=== PATIENT | female | born 1945 | race Caucasian/White ===

== ENCOUNTER 2021-02-09 15:33 | Emergency (ER) | payer MEDICARE, BC ==
[2021-02-09 15:40] VITALS: BP 169/89; PULSE 101; RESP 22; TEMP 98
[2021-02-09] MEDS ORDERED: IBUPROFEN 600 MG TAB PO STA (16:15)
--- NOTE | 2021-02-09 16:23 | ED ---
ENT HPI - General Chief complaint: ENT Stated complaint: Jaw Pain Time Seen by Provider: 02/09/21 16:00 Source: patient, family, RN notes reviewed Mode of arrival: ambulatory Limitations: no limitations - History of Present Illness Initial comments: 75-year-old white female, alert and oriented 4, and anxious. presents to the emergency room with her after developing trismus after eating lunch today. Patient states that she felt her jaw was tight and she was unable to open her mouth. She felt that her jaw was misaligned. Patient denies any injury, this has not happened to her in the past. Patient states there was 4 out of 10 pain at the time but it has resolved. Patient has a history of hypertension, GERD. Patient takes omeprazole hydrochlorothiazide daily. MD complaint: other (jaw tightening) -: hour(s) (1) Location: other (lower jaw) Severity scale (1-10): 0 Consistency: now resolved Improves with: none Worsens with: movement - Related Data Allergies Allergy/AdvReac Type Severity Reaction Status Date / Time azithromycin Allergy Rash/Hives Verified 02/09/21 15:40 [From Zithromax Z-Sigifredo] oxaprozin [From Daypro] Allergy Rash/Hives Verified 02/09/21 15:40 Review of Systems ROS Statement: Those systems with pertinent positive or pertinent negative responses have been documented in the HPI. ROS Other: All systems not noted in ROS Statement are negative. Past Medical History History of Any Multi-Drug Resistant Organisms: None Reported Past Surgical History: Adenoidectomy, Cholecystectomy, Joint Replacement, Tonsillectomy Additional Past Surgical History / Comment(s): sakshi hip Past Psychological History: No Psychological Hx Reported Smoking Status: Never smoker Past Alcohol Use History: None Reported Past Drug Use History: None Reported General Exam Limitations: no limitations General appearance: alert, in no apparent distress, anxious Head exam: Present: atraumatic, normocephalic, normal inspection Eye exam: Present: normal appearance, PERRL, EOMI. Absent: scleral icterus, conjunctival injection, periorbital swelling ENT exam: Present: normal exam, mucous membranes moist Expanded Mouth exam: Present: normal external inspection, trismus (resolved now) Throat exam: normal inspection. negative: tonsillar erythema, tonsillar exudate Neck exam: Present: normal inspection, full ROM. Absent: tenderness, meningismus, lymphadenopathy, thyromegaly Respiratory exam: Present: normal lung sounds bilaterally. Absent: respiratory distress, wheezes, rales, rhonchi, stridor, decreased breath sounds Cardiovascular Exam: Present: tachycardia GI/Abdominal exam: Present: soft, normal bowel sounds. Absent: distended, tenderness, guarding, rebound, rigid Extremities exam: Present: normal inspection, full ROM, normal capillary refill. Absent: tenderness, pedal edema, joint swelling, calf tenderness Back exam: Present: normal inspection, full ROM. Absent: tenderness Neurological exam: Present: alert, oriented X3, CN II-XII intact Psychiatric exam: Present: normal affect, normal mood, anxious Skin exam: Present: warm, dry, intact, normal color. Absent: rash Course Vital Signs 02/09/21 15:37 Temperature 98.0 F Pulse Rate 101 H Respiratory 22 Rate Blood Pressure 169/89 O2 Sat by Pulse 99 Oximetry Medical Decision Making - Medical Decision Making Patient had an episode of trismus that lasted less than one hour. Resolved at this time. Full range of motion. No lymphadenopathy, no fevers, swallows screen past. No neuro deficits. No headaches. Patient is point tender just to the left masseter muscle. Was given Motrin with relief of tightness. Case discussed with Dr. Lo will discharge patient home. Disposition Clinical Impression: Trismus Disposition: HOME SELF-CARE Condition: Good Instructions (If sedation given, give patient instructions): Temporomandibular Disorder (ED) Is patient prescribed a controlled substance at d/c from ED?: No Referrals: Nonstaff,Physician [Primary Care Provider] - 1-2 days Time of Disposition: 16:51
== END 2021-02-09 16:58 | disposition home or self-care (01) ==
LOC: EC 15:33
DX: R25.2 Cramp and spasm (principal); K21.9 Gastro-esophageal reflux disease without esophagitis; I10 Essential (primary) hypertension
CPT/HCPCS: 99282

== ENCOUNTER 2022-07-26 13:17 | Observation (INO) | payer MEDICARE, BC ==
[2022-07-26] MEDS ORDERED: SODIUM CHLORIDE 0.9% 1,000 ML IV STA (13:25)
--- NOTE | 2022-07-26 13:31 | ED ---
General Adult HPI - General Chief complaint: Syncope Stated complaint: Near-syncope Time Seen by Provider: 07/26/22 13:20 Source: patient, EMS, RN notes reviewed Mode of arrival: EMS Limitations: no limitations - History of Present Illness Initial comments: Patient is a pleasant 76-year-old female presenting to the emergency department for not feeling well. Patient was exercising prior to this. Patient reported that she did not feel well and sat down. Patient has had a few episodes of near-syncope. Patient does not recall these well but reportedly patient never completely lost consciousness. Patient states she does feel a little bit fatigued. EMS reports patient was sweaty earlier. EMS also questions the patient was in atrial fibrillation however unable To capture the rhythm on the monitor. - Related Data Allergies Allergy/AdvReac Type Severity Reaction Status Date / Time azithromycin Allergy Rash/Hives Verified 02/09/21 15:40 [From Zithromax Z-Sigifredo] oxaprozin [From Daypro] Allergy Rash/Hives Verified 02/09/21 15:40 Review of Systems ROS Statement: Those systems with pertinent positive or pertinent negative responses have been documented in the HPI. ROS Other: All systems not noted in ROS Statement are negative. Constitutional: Denies: fever Eyes: Denies: eye pain ENT: Denies: ear pain Respiratory: Denies: cough Cardiovascular: Denies: chest pain Endocrine: Reports: fatigue Gastrointestinal: Denies: abdominal pain Genitourinary: Denies: dysuria Musculoskeletal: Denies: back pain Skin: Denies: rash Neurological: Reports: as per HPI Past Medical History Past Medical History: Cancer Additional Past Medical History / Comment(s): Endometrial Cancer Grade 1 History of Any Multi-Drug Resistant Organisms: None Reported Past Surgical History: Adenoidectomy, Cholecystectomy, Joint Replacement, Tonsillectomy Additional Past Surgical History / Comment(s): sakshi hip Past Psychological History: No Psychological Hx Reported Smoking Status: Never smoker Past Alcohol Use History: None Reported Past Drug Use History: None Reported General Exam Limitations: no limitations General appearance: alert, in no apparent distress Head exam: Present: normocephalic Eye exam: Present: normal appearance, PERRL, EOMI ENT exam: Present: normal oropharynx Neck exam: Present: normal inspection Respiratory exam: Present: normal lung sounds bilaterally Cardiovascular Exam: Present: regular rate, normal rhythm GI/Abdominal exam: Present: soft. Absent: tenderness Extremities exam: Present: normal inspection, full ROM. Absent: tenderness, pedal edema, calf tenderness Neurological exam: Present: alert, oriented X3, CN II-XII intact. Absent: motor sensory deficit Expanded Cranial nerves: EOM's Intact: Normal Motor strength exam: RUE: 5, LUE: 5, RLE: 5, LLE: 5 Eye Response: (4) open spontaneously Motor Response: (6) obeys commands Verbal Response: (5) oriented Psychiatric exam: Present: normal affect, normal mood Skin exam: Present: normal color Course Vital Signs 07/26/22 07/26/22 13:17 13:27 Temperature 97.3 F L Pulse Rate 86 Respiratory 16 18 Rate Blood Pressure 150/86 O2 Sat by Pulse 100 Oximetry EKG Findings - EKG Comments: EKG Findings:: Sinus rhythm rate 78. VT 161. QRS 81. QT 363. QTC 396. Left axis. LVH. No acute ST change. Medical Decision Making - Medical Decision Making Patient reevaluated and resting comfortably in bed. Patient and family updated on results and plan. Dr. Suazo has been paged for admission covering for hospital call. CT chest will be ordered. - Lab Data Result diagrams: 07/26/22 13:48 07/26/22 13:48 Lab Results 07/26/22 07/26/22 07/26/22 Range/Units 13:48 13:48 13:48 WBC 7.4 (3.8-10.6) k/uL RBC 4.45 (3.80-5.40) m/uL Hgb 13.7 (11.4-16.0) gm/dL Hct 40.4 (34.0-46.0) % MCV 90.8 (80.0-100.0) fL MCH 30.7 (25.0-35.0) pg MCHC 33.8 (31.0-37.0) g/dL RDW 13.2 (11.5-15.5) % Plt Count 338 (150-450) k/uL MPV 7.8 Neutrophils % 64 % Lymphocytes % 24 % Monocytes % 5 % Eosinophils % 3 % Basophils % 1 % Neutrophils # 4.7 (1.3-7.7) k/uL Lymphocytes # 1.7 (1.0-4.8) k/uL Monocytes # 0.4 (0-1.0) k/uL Eosinophils # 0.2 (0-0.7) k/uL Basophils # 0.1 (0-0.2) k/uL PT 10.3 (9.0-12.0) sec INR 0.9 (<1.2) APTT 21.6 L (22.0-30.0) sec D-Dimer 0.96 H (<0.60) mg/L FEU Sodium 137 (137-145) mmol/L Potassium 4.4 (3.5-5.1) mmol/L Chloride 100 (98-107) mmol/L Carbon Dioxide 25 (22-30) mmol/L Anion Gap 12 mmol/L BUN 19 H (7-17) mg/dL Creatinine 0.67 (0.52-1.04) mg/dL Est GFR (CKD-EPI)AfAm >90 (>60 ml/min/1.73 sqM) Est GFR (CKD-EPI)NonAf 87 (>60 ml/min/1.73 sqM) Glucose 91 (74-99) mg/dL Calcium 9.5 (8.4-10.2) mg/dL Magnesium 1.9 (1.6-2.3) mg/dL Total Bilirubin 0.6 (0.2-1.3) mg/dL AST 24 (14-36) U/L ALT 18 (4-34) U/L Alkaline Phosphatase 70 (38-126) U/L Troponin I (0.000-0.034) ng/mL Total Protein 7.6 (6.3-8.2) g/dL Albumin 4.8 (3.5-5.0) g/dL Lipase 58 (23-300) U/L 07/26/22 Range/Units 13:48 WBC (3.8-10.6) k/uL RBC (3.80-5.40) m/uL Hgb (11.4-16.0) gm/dL Hct (34.0-46.0) % MCV (80.0-100.0) fL MCH (25.0-35.0) pg MCHC (31.0-37.0) g/dL RDW (11.5-15.5) % Plt Count (150-450) k/uL MPV Neutrophils % % Lymphocytes % % Monocytes % % Eosinophils % % Basophils % % Neutrophils # (1.3-7.7) k/uL Lymphocytes # (1.0-4.8) k/uL Monocytes # (0-1.0) k/uL Eosinophils # (0-0.7) k/uL Basophils # (0-0.2) k/uL PT (9.0-12.0) sec INR (<1.2) APTT (22.0-30.0) sec D-Dimer (<0.60) mg/L FEU Sodium (137-145) mmol/L Potassium (3.5-5.1) mmol/L Chloride (98-107) mmol/L Carbon Dioxide (22-30) mmol/L Anion Gap mmol/L BUN (7-17) mg/dL Creatinine (0.52-1.04) mg/dL Est GFR (CKD-EPI)AfAm (>60 ml/min/1.73 sqM) Est GFR (CKD-EPI)NonAf (>60 ml/min/1.73 sqM) Glucose (74-99) mg/dL Calcium (8.4-10.2) mg/dL Magnesium (1.6-2.3) mg/dL Total Bilirubin (0.2-1.3) mg/dL AST (14-36) U/L ALT (4-34) U/L Alkaline Phosphatase (38-126) U/L Troponin I <0.012 (0.000-0.034) ng/mL Total Protein (6.3-8.2) g/dL Albumin (3.5-5.0) g/dL Lipase (23-300) U/L - Radiology Data Radiology results: report reviewed (Computed tomography scan the brain reveals no acute), image reviewed (Chest x-ray shows no acute process) Disposition Clinical Impression: Syncope Disposition: ADMITTED IP TO THIS [facility] Is patient prescribed a controlled substance at d/c from ED?: No Referrals: Nonstaff,Physician [Primary Care Provider] - 1-2 days Time of Disposition: 15:05
[2022-07-26 13:59] LABS: Basophils # (A) 0.1 k/uL (0-0.2); Basophils % (A) 1 %; Eosinophils # (A) 0.2 k/uL (0-0.7); Eosinophils % (A) 3 %; HCT 40.4 % (34.0-46.0); HGB 13.7 gm/dL (11.4-16.0); Lymphocytes # (A) 1.7 k/uL (1.0-4.8); Lymphocytes % (A) 24 %; MCH 30.7 pg (25.0-35.0); MCHC 33.8 g/dL (31.0-37.0); MCV 90.8 fL (80.0-100.0); Mean Platelet Volume 7.8; Monocytes # (A) 0.4 k/uL (0-1.0); Monocytes % (A) 5 %; Neutrophils # (A) 4.7 k/uL (1.3-7.7); Neutrophils % (A) 64 %; Platelet Count 338 k/uL (150-450); RBC 4.45 m/uL (3.80-5.40); RDW 13.2 % (11.5-15.5); WBC 7.4 k/uL (3.8-10.6)
[2022-07-26 14:08] LABS: ALT 18 U/L (4-34); AST 24 U/L (14-36); African American GFR (CKD) >90 (>60 ml/min/1.73 sqM); Albumin 4.8 g/dL (3.5-5.0); Alkaline Phosphatase 70 U/L (38-126); Anion Gap 12 mmol/L; Blood Urea Nitrogen 19 mg/dL (7-17); Calcium 9.5 mg/dL (8.4-10.2); Carbon Dioxide 25 mmol/L (22-30); Chloride 100 mmol/L (98-107); Glucose 91 mg/dL (74-99); Lipase 58 U/L (23-300); Magnesium 1.9 mg/dL (1.6-2.3); Non-African American GFR(CKD) 87 (>60 ml/min/1.73 sqM); Potassium 4.4 mmol/L (3.5-5.1); Sodium 137 mmol/L (137-145); Total Bilirubin 0.6 mg/dL (0.2-1.3); Total Protein 7.6 g/dL (6.3-8.2)
--- NOTE | 2022-07-26 14:20 | XR ---
EXAMINATION TYPE: XR chest 2V DATE OF EXAM: 07/26/2022 2:10 PM COMPARISON: None TECHNIQUE: XR chest 2V . CLINICAL INDICATION:Female, 76 years old with history of Chest Pain; FINDINGS: Lungs/Pleura: Low lung volumes are present. Bibasilar atelectasis. There is no evidence of pleural ef fusion, focal consolidation, or pneumothorax. Pulmonary vascularity: Unremarkable. Heart/mediastinum: Cardiomediastinal silhouette is prominent in size. Musculoskeletal: Degenerative changes of the thoracic spine. No acute abnormalities. IMPRESSION: No focal airspace consolidations.
[2022-07-26 14:34] LABS: INR 0.9 (<1.2); Prothrombin Time 10.3 sec (9.0-12.0)
[2022-07-26 14:43] LABS: Partial Thromboplastin Time 21.6 sec (22.0-30.0)
--- NOTE | 2022-07-26 15:01 | CT ---
EXAMINATION TYPE: CT brain wo con CT DLP: 1158.4 mGycm, Automated exposure control for dose reduction was used. DATE OF EXAM: 07/26/2022 2:24 PM COMPARISON: None relevant. CLINICAL INDICATION:Female, 76 years old with history of ams, Syncope TECHNIQUE: Brain: Axial CT images of the brain were obtained with coronal and sagittal reformats created and rev iewed. Contrast used: None. Oral contrast used: None. FINDINGS: Brain: Extra-axial spaces: No abnormal extra-axial fluid collections. Ventricular system: Within normal limits Cerebral parenchyma: No acute intraparenchymal hemorrhage or mass effect. The lockett-white junction is well differentiated. Cerebellum: Unremarkable. Mass effect: No evidence of midline shift. Intracranial vasculature: unremarkable Soft tissues: Normal. Calvarium/osseous structures: No depressed skull fracture. Paranasal sinuses and mastoid air cells: Clear Visualized orbits: Orbital contents are intact. IMPRESSION: No acute intracranial process.
[2022-07-26] MEDS ORDERED: NALOXONE 0.4 MG/ML 1 ML VIAL IV PRN (15:05)
--- NOTE | 2022-07-26 15:43 | CT ---
EXAMINATION TYPE: CT angio chest CT DLP: 371.7 mGycm, Automated exposure control for dose reduction was used. DATE OF EXAM: 07/26/2022 3:25 PM COMPARISON: Chest radiograph from same day. . CLINICAL INDICATION:Female, 76 years old with history of Dyspnea; elevated d-dimer TECHNIQUE/CONTRAST: CTA scan of the thorax is performed with IV Contrast, patient injected with 75cc mL of Isovue 370, pu lmonary embolism protocol. MIP images are created and reviewed. FINDINGS: Pulmonary Artery: There is no evidence for a filling defect within the pulmonary vasculature to sugge st acute pulmonary embolism. The pulmonary artery is of normal size. Lungs/Pleura: No evidence of focal consolidation, pleural effusion or pneumothorax. Bibasilar multifo berry subsegmental atelectasis. Airway: Large airways are patent. Heart: Heart is within normal limits for size.. Vasculature: Mild atherosclerosis. Normal caliber thoracic aorta. Mediastinum: No gross evidence of adenopathy. Musculoskeletal: Degenerative changes of the thoracic spine without acute osseous abnormality. Soft Tissues: Unremarkable. Lower neck: No significant findings. Upper Abdomen: Small hiatal hernia. Gallbladder is surgically absent.. IMPRESSION: 1. No evidence of pulmonary embolism or acute cardiopulmonary process..
--- NOTE | 2022-07-26 16:26 | P.HPIM ---
History of Present Illness H&P Date: 07/26/22 Chief Complaint: Near-syncope 76 years old lady with past medical history of endometrial cancer, hypertension and peptic ulcer disease presents to the emergency room with chief complaint of near syncope. The patient was working out and [employer] and she just got off the elliptical and she said she felt dizzy and she did not feel well, had what was with her and he said she was laying down on the massage table and talking they denied if she had any loss of consciousness, no sweating, no palpitation, no chest pain or shortness of breath. She stated she passed out before and she was admitted to the hospital and she was told that this was from low blood pressure at that time. The patient stated that she has been and that he is stress lately due to her h usband's medical issues and anxiety. She was brought here by EMS and they noted short run off A. fib but the patient now is in normal sinus rhythm. Admission she was hemodynamically stable blood pressure was borderline elevated 150/86, her labs were unremarkable. Chest x-ray and head CT did not show any acute changes. Review of Systems A 14 point review systems was assessed patient was only positive for those described in HPI Past Medical History Past Medical History: Cancer Additional Past Medical History / Comment(s): Endometrial Cancer Grade 1 History of Any Multi-Drug Resistant Organisms: None Reported Past Surgical History: Adenoidectomy, Cholecystectomy, Joint Replacement, Tonsillectomy Additional Past Surgical History / Comment(s): sakshi hip Past Psychological History: No Psychological Hx Reported Smoking Status: Never smoker Past Alcohol Use History: None Reported Past Drug Use History: None Reported Medications and Allergies Home Medications Medication Instructions Recorded Confirmed Type Cholecalciferol [Vitamin D3 (25 25 mcg PO DAILY 07/26/22 07/26/22 History Mcg = 1000 Iu)] Cyanocobalamin [Vitamin B-12 1,000 mcg SQ Q30D 07/26/22 07/26/22 History Injection] Famotidine [Pepcid] 20 mg PO DAILY 07/26/22 07/26/22 History Omeprazole 20 mg PO DAILY 07/26/22 07/26/22 History hydroCHLOROthiazide [Hydrodiuril] 25 mg PO DAILY 07/26/22 07/26/22 History lisinopriL 20 mg PO DAILY 07/26/22 07/26/22 History Allergies Allergy/AdvReac Type Severity Reaction Status Date / Time azithromycin Allergy Rash/Hives Verified 07/26/22 15:31 [From Zithromax Z-Sigifredo] oxaprozin [From Daypro] Allergy Rash/Hives Verified 07/26/22 15:31 Physical Exam Vitals: Vital Signs Temp Pulse Resp BP Pulse Ox 07/26/22 16:02 90 16 145/85 98 07/26/22 13:27 18 07/26/22 13:17 97.3 F L 86 16 150/86 100 Intake and Output 07/26/22 07/26/22 07/26/22 06:59 14:59 22:59 Other: Weight 86.818 kg General: [non toxic], [no distress], [appears at stated age] Derm: [warm], [dry] Head: [atraumatic], [normocephalic], [symmetric] Eyes: [EOMI], [no lid lag], [anicteric sclera] Mouth: [no lip lesion], [mucus membranes moist] Cardiovascular: [S1S2 reg], [no murmur], [positive posterior tibial pulse bilateral], Lungs: [CTA bilateral], [no rhonchi, no rales] , [no accessory muscle use] Abdominal: [soft], [ nontender to palpation], [no guarding], [no appreciable org anomegaly] Ext: [no gross muscle atrophy], [no edema], [no contractures] Neuro: [ CN II-XI grossly intact], [no focal neuro deficits] Psych: [Alert], [oriented], [appropriate affect] Results CBC & Chem 7: 07/26/22 13:48 07/26/22 13:48 Labs: Abnormal Lab Results - Last 24 Hours (Table) 07/26/22 07/26/22 Range/Units 13:48 13:48 APTT 21.6 L (22.0-30.0) sec D-Dimer 0.96 H (<0.60) mg/L FEU BUN 19 H (7-17) mg/dL Assessment and Plan Assessment: Near-syncope Concern for A. fib Recurrent PVCs EKG within normal limits Troponin is negative Labs are unremarkable Consulted cardiology Consulted neurology Ordered echo Cardiac telemetry Hypertension The patient is on Lisinopril 20 mg daily and hydrochlorothiazide 25 mg daily We'll hold hydrochlorothiazide and resume lisinopril GERD Resume omeprazole Endometrial cancer Follow-up outpatient DVT Prophylaxis: Subcu heparin early ambulation PPI prophylaxis omeprazole Code status: Full code Anticipated length of stay: less than [address]: Home
[2022-07-26 22:26] LABS: ALT 18 U/L (4-34); AST 23 U/L (14-36); African American GFR (CKD) >90 (>60 ml/min/1.73 sqM); Albumin 3.9 g/dL (3.5-5.0); Alkaline Phosphatase 64 U/L (38-126); Anion Gap 10 mmol/L; Blood Urea Nitrogen 16 mg/dL (7-17); Calcium 9.3 mg/dL (8.4-10.2); Carbon Dioxide 25 mmol/L (22-30); Chloride 102 mmol/L (98-107); Glucose 98 mg/dL (74-99); Non-African American GFR(CKD) 87 (>60 ml/min/1.73 sqM); Sodium 137 mmol/L (137-145); Total Bilirubin 0.4 mg/dL (0.2-1.3); Total Protein 6.7 g/dL (6.3-8.2)
[2022-07-27] MEDS: PANTOPRAZOLE 40 MG TABLET PO SCH (07:42)
[2022-07-27] MEDS: lisinopriL 20 MG TAB PO SCH (10:06)
[2022-07-27] MEDS: CHOLECALCIFEROL 25 MCG (1000 IU) TABLET PO SCH (10:06)
[2022-07-27 10:57] LABS: BUN/Creat Ratio 18.46 Ratio (12.00-20.00); Blood Urea Nitrogen 12.5 mg/dL (9.0-27.0); Calcium 9.2 mg/dL (8.7-10.3); Carbon Dioxide 25.9 mmol/L (20.0-27.5); Magnesium 2.1 mg/dL (1.5-2.4); Non-African American GFR(CKD) 86.3 (60.0-200.0); Phosphorus 3.8 mg/dL (2.4-5.1); Potassium 4.4 mmol/L (3.5-5.5)
[2022-07-27 11:08] LABS: Basophils # (A) 0.05 X 10*3/uL (0.00-0.10); Basophils % (A) 0.7 %; Eosinophils # (A) 0.23 X 10*3/uL (0.04-0.35); Eosinophils % (A) 3.3 %; HCT 35.8 % (37.2-46.3); HGB 11.9 g/dL (12.0-15.0); Immature Grans, Automated 0.1 %; Lymphocytes # (A) 2.02 X 10*3/uL (0.90-5.00); Lymphocytes % (A) 29.4 %; MCH 29.8 pg (27.0-32.0); MCHC 33.2 g/dL (32.0-37.0); MCV 89.5 fL (80.0-97.0); Mean Platelet Volume 9.4 fL (9.5-12.2); Monocytes # (A) 0.66 X 10*3/uL (0.20-1.00); Monocytes % (A) 9.6 %; NRBC Per 100 WBC 0 /100 WBCS (0.0-0.0); Neutrophils % (A) 56.9 %; Platelet Count 360 X 10*3/uL (140-440); RDW 13.5 % (11.5-14.5); WBC 6.87 X 10*3/uL (4.50-10.00)
--- NOTE | 2022-07-27 13:16 | P.CRDCN ---
History of Present Illness Consult date: 07/27/22 Consult reason: sycope History of present illness: The patient is a 76-year-old female with past medical history of hypertension, who presented to the emergency room with syncope. The patient states she was exercising at the gym with her . She had walked on the treadmill for approximately 10 minutes in addition to the elliptical. She states she decided to go over to the massage table and rest due to feeling "off." She states she remembers waking up to her asking her if she felt unwell. She did not fall, but does not remember laying down on the massage table. She told her she did feel unwell, therefore EMS was notified. She does not recall being taken care of by EMS staff, but does remember being in the ambulance. According the ER note, there was a mention of the patient having a brief paroxysm of atrial tachycardia while in transport. The patient states she did eat a small amount of yogurt prior to working out yesterday morning. She states she did not consume a large amount of water. DIAGNOSTICS: EKG shows sinus rhythm without ST or T-wave abnormalities Chest x-ray shows no acute cardiopulmonary process CT of the brain shows no acute intracranial process CT of the chest shows no evidence of pulmonary embolism Lab data: WBC 6.8, hemoglobin 11.9, hematocrit 35.8, platelets 360, d-dimer 0.96, sodium 140, potassium 4.4, BUN 12.5, creatinine 0.7, phosphorus 3.8, magnesium 2.1, troponin negative 3, AST 23, ALT 18, TSH 1.78 PAST MEDICAL HISTORY: Hypertension, cervical cancer REVIEW OF SYSTEMS: No fever or chills. No cough or expectoration. No diaphoresis. Patient denies headache, dizziness, blurred vision, double vision. Patient denies any stomach discomfort. No nausea, vomiting. No hematochezia. No hematemesis. Denies any black stools or blood in his stools. Denies dysuria or hematuria. No muscle weakness or numbness. No chest pain or chest pressure. No dyspnea or orthopnea. PHYSICAL EXAMINATION: This is a 76-year-old female in no apparent distress at the time of my examination. HEENT: Head is atraumatic, normocephalic. Pupils are equal, round. Sclerae anicteric. Conjunctivae are clear. Mucous membranes of the mouth are moist. Neck is supple. There is no jugular venous distention. No carotid bruit is heard. CHEST EXAMINATION: Lungs are clear to auscultation. No chest wall tenderness is noted on palpation or with deep breathing. HEART EXAMINATION: Heart rate is irregular. S1, S2 heard. No murmurs, gallops or rub. ABDOMEN: Soft, nontender. Bowel sounds are heard. No organomegaly noted. EXTREMITIES: 2+ peripheral pulses with no evidence of peripheral edema and no calf tenderness noted. NEUROLOGIC EXAMINATION: Patient is awake, alert and oriented x3. FINAL ASSESSMENT AND PLAN: Syncope, arrhythmia versus hypoglycemia versus hypotension Frequent PVCs with runs of bigeminy No atrial arrhythmias in EMS records Hypertension PLAN: Continue to hold hydrochlorothiazide Resume home dose of lisinopril Agree with echocardiogram and Doppler study Outpatient event monitoring and stress testing to be performed Patient may be discharged for outpatient follow-up I am dictating on behalf of Dr Pete Vieira's history/physical and assessment/plan. Past Medical History Past Medical History: Cancer Additional Past Medical History / Comment(s): Endometrial Cancer Grade 1 History of Any Multi-Drug Resistant Organisms: None Reported Past Surgical History: Adenoidectomy, Cholecystectomy, Joint Replacement, Tonsillectomy Additional Past Surgical History / Comment(s): sakshi hip Past Psychological History: No Psychological Hx Reported Smoking Status: Never smoker Past Alcohol Use History: None Reported Past Drug Use History: None Reported Medications and Allergies Home Medications Medication Instructions Recorded Confirmed Type Cholecalciferol [Vitamin D3 (25 25 mcg PO DAILY 07/26/22 07/26/22 History Mcg = 1000 Iu)] Cyanocobalamin [Vitamin B-12 1,000 mcg SQ Q30D 07/26/22 07/26/22 History Injection] Famotidine [Pepcid] 20 mg PO DAILY 07/26/22 07/26/22 History Omeprazole 20 mg PO DAILY 07/26/22 07/26/22 History hydroCHLOROthiazide [Hydrodiuril] 25 mg PO DAILY 07/26/22 07/26/22 History lisinopriL 20 mg PO DAILY 07/26/22 07/26/22 History Allergies Allergy/AdvReac Type Severity Reaction Status Date / Time azithromycin Allergy Rash/Hives Verified 07/26/22 15:31 [From Zithromax Z-Sigifredo] oxaprozin [From Daypro] Allergy Rash/Hives Verified 07/26/22 15:31 Physical Exam Vitals: Vital Signs Temp Pulse Pulse Pulse Pulse Pulse Resp 07/27/22 11:32 81 87 43 L 07/27/22 08:56 97.7 F 81 15 07/27/22 08:00 81 15 07/27/22 02:00 65 16 07/26/22 23:55 98 F 74 18 07/26/22 19:17 77 12 07/26/22 16:02 90 16 07/26/22 13:27 18 07/26/22 13:17 97.3 F L 86 16 BP BP BP BP BP Pulse Ox 07/27/22 11:32 155/94 132/90 152/78 07/27/22 08:56 137/77 99 07/27/22 08:00 07/27/22 02:00 123/87 98 07/26/22 23:55 127/77 97 07/26/22 19:17 145/78 97 07/26/22 16:02 145/85 98 07/26/22 13:27 07/26/22 13:17 150/86 100 Intake and Output 07/26/22 07/27/22 07/27/22 22:59 06:59 14:59 Intake Total 350 Balance 350 Intake: Oral 350 Other: # Voids 1 Results 07/27/22 07:27 07/27/22 07:27 Cardiac Enzymes 07/26/22 07/26/22 07/26/22 Range/Units 13:48 13:48 18:31 AST 24 (14-36) U/L Troponin I <0.012 <0.012 (0.000-0.034) ng/mL 07/26/22 07/26/22 Range/Units 19:20 21:57 AST 23 (14-36) U/L Troponin I <0.012 (0.000-0.034) ng/mL Coagulation 07/26/22 Range/Units 13:48 PT 10.3 (9.0-12.0) sec APTT 21.6 L (22.0-30.0) sec CBC 07/26/22 07/27/22 Range/Units 13:48 07:27 WBC 7.4 6.87 (3.8-10.6) k/uL RBC 4.45 4.00 L (3.80-5.40) m/uL Hgb 13.7 11.9 L (11.4-16.0) gm/dL Hct 40.4 35.8 L (34.0-46.0) % Plt Count 338 360 (150-450) k/uL Comprehensive Metabolic Panel 07/26/22 07/26/22 07/27/22 Range/Units 13:48 19:20 07:27 Sodium 137 137 140 (137-145) mmol/L Potassium 4.4 4.0 4.4 (3.5-5.1) mmol/L Chloride 100 102 102 (98-107) mmol/L Carbon Dioxide 25 25 25.9 (22-30) mmol/L BUN 19 H 16 12.5 (7-17) mg/dL Creatinine 0.67 0.67 0.7 (0.52-1.04) mg/dL Glucose 91 98 96 (74-99) mg/dL Calcium 9.5 9.3 9.2 (8.4-10.2) mg/dL AST 24 23 (14-36) U/L ALT 18 18 (4-34) U/L Alkaline Phosphatase 70 64 (38-126) U/L Total Protein 7.6 6.7 (6.3-8.2) g/dL Albumin 4.8 3.9 (3.5-5.0) g/dL Current Medications Generic Name Dose Route Start Last Admin Trade Name Freq PRN Reason Stop Dose Admin Cholecalciferol 25 mcg 07/27/22 09:00 07/27/22 10:06 Cholecalciferol 25 Mcg (1000 Iu) Tablet PO 25 mcg DAILY DALJIT Administration Lisinopril 20 mg 07/27/22 09:00 07/27/22 10:06 Lisinopril 20 Mg Tab PO 20 mg DAILY DALJIT Administration Naloxone HCl 0.2 mg 07/26/22 15:05 Naloxone 0.4 Mg/Ml 1 Ml Vial IV Q2M PRN Opioid Reversal Pantoprazole Sodium 40 mg 07/27/22 07:30 07/27/22 07:42 Pantoprazole 40 Mg Tablet PO Not Given AC-BRKFST DALJIT Intake and Output 07/26/22 07/27/22 07/27/22 22:59 06:59 14:59 Intake Total 350 Balance 350 Intake: Oral 350 Other: # Voids 1 10/16/22 07:27 07/27/22 07:27
--- NOTE | 2022-07-27 14:06 | P.PN ---
Subjective Progress Note Date: 07/27/22 The patient was seen at bedside, no acute events overnight. She continues to by asymptomatic. Objective - Vital Signs Vital signs: Vital Signs Temp 97.7 F 07/27/22 08:56 Pulse 43 L 07/27/22 11:32 Resp 15 07/27/22 08:56 BP 152/78 07/27/22 11:32 Pulse Ox 99 07/27/22 08:56 FiO2 Intake & Output 07/26/22 07/27/22 07/27/22 18:59 06:59 18:59 Intake Total 350 Balance 350 Weight 86.818 kg Intake: Oral 350 Other: # Voids 1 - Exam General: [non toxic], [no distress], [appears at stated age] Derm: [warm], [dry] Head: [atraumatic], [normocephalic], [symmetric] Eyes: [EOMI], [no lid lag], [anicteric sclera] Mouth: [no lip lesion], [mucus membranes moist] Cardiovascular: [S1S2 reg], [no murmur], [positive posterior tibial pulse bilateral], Lungs: [CTA bilateral], [no rhonchi, no rales] , [no accessory muscle use] Abdominal: [soft], [ nontender to palpation], [no guarding], [no appreciable organomegaly] Ext: [no gross muscle atrophy], [no edema], [no contractures] Neuro: [ CN II-XI grossly intact], [no focal neuro deficits] Psych: [Alert], [oriented], [appropriate affect] - Labs CBC & Chem 7: 07/27/22 07:27 07/27/22 07:27 Labs: Abnormal Lab Results - Last 24 Hours (Table) 07/26/22 07/26/22 07/27/22 Range/Units 13:48 13:48 07:27 RBC 4.00 L (4.10-5.20) X 10*6/uL Hgb 11.9 L (12.0-15.0) g/dL Hct 35.8 L (37.2-46.3) % MPV 9.4 L (9.5-12.2) fL APTT 21.6 L (22.0-30.0) sec D-Dimer 0.96 H (<0.60) mg/L FEU BUN 19 H (7-17) mg/dL Assessment and Plan Assessment: Near-syncope Concern for A. fib Recurrent PVCs EKG within normal limits Troponin is negative Labs are unremarkable Consulted cardiology Consulted neurology Ordered echo Cardiac telemetry Hypertension The patient is on Lisinopril 20 mg daily and hydrochlorothiazide 25 mg daily We'll hold hydrochlorothiazide and resume lisinopril GERD Resume omeprazole Endometrial cancer Follow-up outpatient DVT Prophylaxis: Subcu heparin early ambulation PPI prophylaxis omeprazole Code status: Full code Anticipated length of stay: less than [address]: Home
--- NOTE | 2022-07-27 15:13 | P.CNNES ---
History of Present Illness Consult date: 07/27/22 Reason for Consult: Syncope History of Present Illness: The patient is a 76-year-old female who was seen in neurologic consultation on July 27, 2022, via teleneurology. History is obtained from the patient and from her who is present at the bedside at the time of the evaluation.the patient reports that she was exercising at the gym. She initially walked on the treadmill for approximately 10 minutes. She says she walked about 3 miles. She then went to the elliptical machine where she began to exercise. She then started to feel somewhat off and so that down from that machine and decided to go over to the massage table to lay down. She states that in order to lay down on the massage table she had to walk to the front to "sign in". The patient reports not remembering walking to the registration area, nor does she remember laying down onto the table. She does recall feeling lightheaded while she was laying down. She says that her came over to the table and began speaking with her. She reported not feeling well. The patient's reports that his was speaking clearly, however seemed to be a little bit confused. She did not know where she was. He reports that she was very pale. The patient denies shortness of breath and chest pain. She does report not having had anything to eat or drink prior to exercising. Because of the patient's symptoms, EMS was called to the scene. The patient does not recall getting into the ambulance. She does recall the ride in the ambulance and recalls being in the emergency department. There was no tongue biting or loss of bowel and bladder control. There were no seizure like movements. According to the patient's , the patient has been under a great deal of stress over the past few months. The patient herself was recently diagnosed with uterine cancer and her underwent coronary artery bypass surgery this summer. The patient does have a past episode of syncope. This apparently occurred when the patient arose during the night, quickly from the bed. Her was present at the time and he reports that the patient went down to the floor, gently because he was able to lower her to the floor. She was unconscious for a short period of time. When she awoke, she began to vomit. She was subsequently taken to the hospital. Workup in the emergency department included a CT scan of the brain. There is no evidence of acute hemorrhage, mass or infarct. Past Medical History Past Medical History: Cancer, Hypertension Additional Past Medical History / Comment(s): Endometrial Cancer Grade 1 History of Any Multi-Drug Resistant Organisms: None Reported Past Surgical History: Adenoidectomy, Cholecystectomy, Joint Replacement, Tonsillectomy Additional Past Surgical History / Comment(s): sakshi hip Past Psychological History: No Psychological Hx Reported Smoking Status: Never smoker Past Alcohol Use History: None Reported Past Drug Use History: None Reported Medications and Allergies Home Medications Medication Instructions Recorded Confirmed Type Cholecalciferol [Vitamin D3 (25 25 mcg PO DAILY 07/26/22 07/26/22 History Mcg = 1000 Iu)] Cyanocobalamin [Vitamin B-12 1,000 mcg SQ Q30D 07/26/22 07/26/22 History Injection] Famotidine [Pepcid] 20 mg PO DAILY 07/26/22 07/26/22 History Omeprazole 20 mg PO DAILY 07/26/22 07/26/22 History hydroCHLOROthiazide [Hydrodiuril] 25 mg PO DAILY 07/26/22 07/26/22 History lisinopriL 20 mg PO DAILY 07/26/22 07/26/22 History Allergies Allergy/AdvReac Type Severity Reaction Status Date / Time azithromycin Allergy Rash/Hives Verified 07/26/22 15:31 [From Zithromax Z-Sigifredo] oxaprozin [From Daypro] Allergy Rash/Hives Verified 07/26/22 15:31 Physical Examination - Vital Signs Vital Signs: Vital Signs Temp Pulse Pulse Pulse Pulse Pulse Resp 07/27/22 14:27 98.1 F 78 15 07/27/22 11:32 81 87 43 L 07/27/22 08:56 97.7 F 81 15 07/27/22 08:00 81 15 07/27/22 02:00 65 16 07/26/22 23:55 98 F 74 18 07/26/22 19:17 77 12 07/26/22 16:02 90 16 BP BP BP BP BP Pulse Ox 07/27/22 14:27 113/66 94 L 07/27/22 11:32 155/94 132/90 152/78 07/27/22 08:56 137/77 99 07/27/22 08:00 07/27/22 02:00 123/87 98 07/26/22 23:55 127/77 97 07/26/22 19:17 145/78 97 07/26/22 16:02 145/85 98 Intake and Output 07/26/22 07/27/22 07/27/22 22:59 06:59 14:59 Intake Total 350 Balance 350 Intake: Oral 350 Other: # Voids 1 1 Gen.: The patient is reclining in the bed. She is well-nourished, well- developed and in no acute distress. HEENT: Head is atraumatic, normocephalic. Fundus not visualized. There is no scleral icterus. Mucous membranes are moist. Neck: Supple without carotid bruits Heart: Regular rate and rhythm line lungs: Clear to auscultation Extremities: Without edema Neurological examination Mental status: The patient is awake, alert and oriented 3. Her speech is clear. There is no dysarthria or aphasia. Cranial nerves: Pupils are equal at 2 mm and reactive. Visual brown are full to confrontation. Extraocular movements are intact. There is no nystagmus. Facial sensation is intact. There is no facial asymmetry. Hearing is grossly intact. Uvula and palate are midline. Shoulder shrug is symmetric. Tongue protrudes midline. There is no evidence of tongue bite. Motor: Strength is 5/5 throughout Sensation: Intact to light touch throughout Coordination: Finger to nose and rapid alternating movements are intact Deep tendon reflexes: 2+/4+ in the bilateral upper extremities and left patella. Right patellar reflex 3+/4+. Gait: Not assessed Results - Laboratory Findings CBC and BMP: 07/27/22 07:27 07/27/22 07:27 Abnormal Lab Findings: Abnormal Labs 07/26/22 07/26/22 07/27/22 13:48 13:48 07:27 RBC 4.00 L Hgb 11.9 L Hct 35.8 L MPV 9.4 L APTT 21.6 L D-Dimer 0.96 H BUN 19 H - Diagnostic Findings Comments: images of CT scan of brain have been personally reviewed Assessment and Plan Assessment: 1. Episode of loss of consciousness, most consistent with syncope, possibly secondary to hypoglycemia versus hypotension Plan: 1. Cardiac workup 2. May consider discharge home with Holter monitor if cardiology feels necessary Thank you for allowing us to participate in the care of this patient. No further neurologic intervention is needed at this time. Please call with questions or concerns Time with Patient: Greater than 30 (spent 45 minutes examining patient, reviewing imaging, labs, documentation and preparing note)
[2022-07-27 16:24] LABS: Chol/HDL Ratio 2.57 Ratio; LDL Cholesterol,Calculated 113.7 mg/dL (0.0-131.0); VLDL Calculation 17.14 mg/dL (5.00-40.00)
[2022-07-27] MEDS ORDERED: MELATONIN 5 MG TABLET PO SCH (21:00)
[2022-07-28 03:46] VITALS: RESP 16
[2022-07-28] MEDS: PANTOPRAZOLE 40 MG TABLET PO SCH (08:13)
[2022-07-28] MEDS: CHOLECALCIFEROL 25 MCG (1000 IU) TABLET PO SCH (08:14)
[2022-07-28] MEDS: lisinopriL 20 MG TAB PO SCH (08:14)
[2022-07-28 08:35] VITALS: BP 127/76; PULSE 67; TEMP 98.1
[2022-07-28 09:18] LABS: Basophils # (A) 0.04 X 10*3/uL (0.00-0.10); Basophils % (A) 0.7 %; Eosinophils # (A) 0.27 X 10*3/uL (0.04-0.35); Eosinophils % (A) 4.8 %; HCT 36.7 % (37.2-46.3); HGB 11.6 g/dL (12.0-15.0); Immature Grans, Automated 0.2 %; Lymphocytes # (A) 1.76 X 10*3/uL (0.90-5.00); MCH 29.3 pg (27.0-32.0); MCHC 31.6 g/dL (32.0-37.0); MCV 92.7 fL (80.0-97.0); Mean Platelet Volume 9.6 fL (9.5-12.2); Monocytes # (A) 0.57 X 10*3/uL (0.20-1.00); Monocytes % (A) 10.1 %; NRBC Per 100 WBC 0 /100 WBCS (0.0-0.0); Neutrophils # (A) 3.02 X 10*3/uL (1.80-7.70); Neutrophils % (A) 53.2 %; Platelet Count 361 X 10*3/uL (140-440); RBC 3.96 X 10*6/uL (4.10-5.20); RDW 13.6 % (11.5-14.5); WBC 5.67 X 10*3/uL (4.50-10.00)
[2022-07-28 09:39] LABS: African American GFR (CKD) 98.9 (60.0-200.0); Anion Gap 9.7 mmol/L (10.00-18.00); BUN/Creat Ratio 20.86 Ratio (12.00-20.00); Blood Urea Nitrogen 14.6 mg/dL (9.0-27.0); Calcium 8.9 mg/dL (8.7-10.3); Carbon Dioxide 26.3 mmol/L (20.0-27.5); Non-African American GFR(CKD) 85.4 (60.0-200.0); Phosphorus 4.4 mg/dL (2.4-5.1); Potassium 4.3 mmol/L (3.5-5.5)
--- NOTE | 2022-07-28 09:47 | CA ---
Transthoracic Echo Report Name: Tracy Cox Age: 76 Gender: F : 1945 Exam Date: 07/28/2022 07:56 Exam Location: [facility] Ht (in): 61 Wt (lb): 191 Ordering Physician: Irlanda Suazo MD Attending/Referring Phys: Direct Support Professional Caregiver Monica Hernandez RDCS Procedure CPT: Indications: Syncope Cardiac Hx: Technical Quality: Good Contrast 1: Total Dose (mL): Contrast 2: Total Dose (mL): MEASUREMENTS (Male / Female) Normal Values 2D ECHO LV Diastolic Diameter PLAX 4.2 cm 4.2 - 5.9 / 3.9 - 5.3 cm LV Systolic Diameter PLAX 2.7 cm IVS Diastolic Thickness 1.0 cm 0.6 - 1.0 / 0.6 - 0.9 cm LVPW Diastolic Thickness 1.0 cm 0.6 - 1.0 / 0.6 - 0.9 cm LV Relative Wall Thickness 0.5 RV Internal Dim ED PLAX 2.9 cm LA Systolic Diameter LX 3.2 cm 3.0 - 4.0 / 2.7 - 3.8 cm LA Volume 60.0 cm??? 18 - 58 / 22 - 52 cm??? M-MODE Aortic Root Diameter MM 3.3 cm MV E Point Septal Separation 0.7 cm AV Cusp Separation MM 1.9 cm DOPPLER AV Peak Velocity 165.1 cm/s AV Peak Gradient 10.9 mmHg MV Area PHT 2.6 cm??? Mitral E Point Velocity 92.3 cm/s Mitral A Point Velocity 102.0 cm/s Mitral E to A Ratio 0.9 MV Deceleration Time 292.7 ms MV E' Velocity 5.3 cm/s Mitral E to MV E' Ratio 17.6 TR Peak Velocity 196.4 cm/s TR Peak Gradient 15.4 mmHg Right Ventricular Systolic Press 20.2 mmHg FINDINGS Left Ventricle Left ventricular ejection fraction is estimated at 55-60 %. Left ventricular cavity size normal. Borderline left ventricular hypertrophy. Right Ventricle Normal right ventricular size and function. Right ventricular systolic pressure within normal limits. Right Atrium Normal right atrial size. Left Atrium Mildly increased left atrial volume. No evidence for an atrial septal defect. Mitral Valve Mitral valve thickened. Mild mitral regurgitation. Aortic Valve Trileaflet aortic valve. No aortic valve stenosis or regurgitation. Tricuspid Valve Mild tricuspid regurgitation. Pulmonic Valve Trace pulmonic regurgitation. Pericardium Normal pericardium. No pericardial effusion. Aorta Normal size aortic root and proximal ascending aorta. CONCLUSIONS Normal LV size and systolic function. Mild mitral and tricuspid insufficiency. No pericardial effusion Previewed by: Dr. Carrie Herron MD (Electronically Signed) Final Date: 28 July 2022 09:46
--- NOTE | 2022-07-28 10:30 | P.DS ---
Providers Date of admission: 07/26/22 15:13 Expected date of discharge: 07/28/22 Attending physician: Osiel Alcocer MD Consults: 07/26/22 15:05 Consult Physician Routine Consulting Provider: Pete Vieira Consult Reason/Comments: syncope Do you want consulting provider notified?: Yes Consult Physician Routine Consulting Provider: Amanda Gerber Consult Reason/Comments: syncope Do you want consulting provider notified?: Yes Primary care physician: Physician Nonstaff Hospital Course: Discharge Diagnosis: Near syncopal episode, believed to be secondary to hypotension. Hydrochlorothiazide discontinued. Patient to follow-up outpatient in cardiology office for placement of event monitor and scheduling of outpatient stress test. Recurrent PVCs Hypertension GERD Endometrial cancer status post hysterectomy, continue to follow up outpatient with automatic teller machine servicer. Hospital Course: Patient is a very pleasant 76-year-old female with a past medical history of endometrial cancer status post hysterectomy, hypertension, and peptic ulcer disease. She presented to the emergency department on 07/26/22 with a chief complaint of near syncopal episode. Patient reports that she was working out at [employer] was on the elliptical sports trainer for approximately 20 minutes and stated her heart rate was around 140 but when she got off she felt dizzy and went to the massage tables. Patient reports she signed in at the massage table and laid down but never returned the machine on and doesn't recall lying down on the table. Patient's reportedly found her moments later and stated she did not look well and was concerned that she may have lost consciousness and he brought her to the emergency department for evaluation. Patient denied experiencing any changes in vision, hearing, diaphoresis, palpitations, shortness of breath, nausea, vomiting, or experiencing any numbness/t ingling/weakness/swelling in her extremities. Upon arrival to the emergency department patient underwent full evaluation. Vital signs stable. EKG showing normal sinus rhythm at 78 bpm with no noted T wave or ST abnormality showing no signs of acute ischemia. CT brain negative for acute intercranial process. Chest x-ray negative for acute cardiopulmonary process. Patient admitted under services of consultation to neurology and cardiology. Echocardiogram completed revealing normal EF of 55-60% with mild mitral and tricuspid insufficiency. Syncopal episode believed to be secondary to hypotensive event. Orthostatic vitals were negative. Hydrochlorothiazide was discontinued and it is recommended that patient follow-up outpatient in cardiology office for placement of event monitor and scheduling of outpatient stress test. Since arrival to our facility, patient is free from any complaints or concerns including headache, lightheadedness, dizziness, changes in vision or hearing, chest pain or palpitations, shortness of breath, exertional dyspnea, nausea, vomiting, or experiencing any numbness/tingling/weakness in her extremities. Patient's vital signs are stable and she is stable for discharge home. Physical examination: Patient seen and examined at bedside. Vital signs reviewed and stable. General: Nontoxic, no distress and appears stated age. Derm: Skin warm and dry, normal coloration for ethnicity. Head: Atraumatic, normocephalic and symmetric. Eyes: EOMs intact, no lid lag, and anicteric sclera Mouth: no lip lesions, mucus membranes moist Cardiovascular: regular rate and rhythm with normal S1S2, systolic murmur, positive posterior tibial pulses bilaterally, and cap refill < 2 seconds. Lungs: Respirations even, regular, and unlabored on room air. Lungs CTA bilaterally, no rhonchi, no rales, no wheezing, and no accessory muscle usage. Abdominal: soft, nontender to palpation, no guarding, no appreciable organ omegaly Ext: ROM intact. No gross muscle atrophy, no edema, no contractures Neuro: Speech clear, face symmetrical and CN II-XII grossly intact with no noted focal neuro deficits Psych: Alert and oriented to person, place, time, and situation. Appropriate and pleasant affect. A total of 35 minutes of time were spent preparing this complex discharge summary. Pt was discharged on 07/28/22 at 10:29 AM I reviewed the documentation as provided by the FRANTZ above, who is the original author of this note. I agree with the documented assessment and plan, with the following changes: none Patient Condition at Discharge: Stable Plan - Discharge Summary Discharge Rx Participant: No New Discharge Prescriptions: New Melatonin 5 mg PO HS 90 Days #90 tab Continue Omeprazole 20 mg PO DAILY Famotidine [Pepcid] 20 mg PO DAILY Cyanocobalamin [Vitamin B-12 Injection] 1,000 mcg SQ Q30D Cholecalciferol [Vitamin D3 (25 Mcg = 1000 Iu)] 25 mcg PO DAILY lisinopriL 20 mg PO DAILY Discontinued hydroCHLOROthiazide [Hydrodiuril] 25 mg PO DAILY Discharge Medication List Cholecalciferol [Vitamin D3 (25 Mcg = 1000 Iu)] 25 mcg PO DAILY 07/26/22 [History] Cyanocobalamin [Vitamin B-12 Injection] 1,000 mcg SQ Q30D 07/26/22 [History] Famotidine [Pepcid] 20 mg PO DAILY 07/26/22 [History] Omeprazole 20 mg PO DAILY 07/26/22 [History] lisinopriL 20 mg PO DAILY 07/26/22 [History] Melatonin 5 mg PO HS 90 Days #90 tab 07/28/22 [Rx] Follow up Appointment(s)/Referral(s): Pete Vieira MD [STAFF PHYSICIAN] - 2 Weeks (Office will call with appointment time and date.) Nonstaff,Physician [Primary Care Provider] - 1-2 days Activity/Diet/Wound Care/Special Instructions: Activity: As tolerated. Take breaks as needed. Diet: Heart healthy and carb consistent diet. Avoid salts, or foods with hidden salts such as canned or boxed foods and frozen dinners. Extra salt makes your heart work harder and traps the fluid in your body for longer. Special Instructions: Take all of your medications as directed and remember to keep all of your doctor's appointments and follow-up as needed. Follow-up outpatient with cardiology as discussed for event monitor and stress testing. Thank you for allowing us to participate in your care, it was truly a pleasure having you for our patient!!! Discharge Disposition: HOME SELF-CARE
== END 2022-07-28 12:16 | disposition home or self-care (01) ==
LOC: EC 13:17 → 6NMEDSUR 15:13
PROVIDERS: ADMIT Student in an Organized Health Care Education/Training Program; ATTEND Student in an Organized Health Care Education/Training Program
DX: R55 Syncope and collapse (principal); I49.3 Ventricular premature depolarization; I10 Essential (primary) hypertension; I08.1 Rheumatic disorders of both mitral and tricuspid valves; R42 Dizziness and giddiness; K21.9 Gastro-esophageal reflux disease without esophagitis; F41.9 Anxiety disorder, unspecified; Z79.899 Other long term (current) drug therapy; Z88.1 Allergy status to other antibiotic agents; Z88.6 Allergy status to analgesic agent; Z85.42 Personal history of malignant neoplasm of other parts of uterus; Z90.49 Acquired absence of other specified parts of digestive tract; Z96.643 Presence of artificial hip joint, bilateral; Z87.11 Personal history of peptic ulcer disease; Z90.710 Acquired absence of both cervix and uterus
CPT/HCPCS: 99285; 36415; 93005; 93306; 85379; 80053; 80048 ×2; 80061; 84443; 83690; 83735 ×3; 84100 ×2; 84484; 85025 ×3; 85610; 85730; 83036; 71046; 70450; 71275; G0378 ×3; Q9967